=== PATIENT | male | born 1975 | race Caucasian/White ===

== ENCOUNTER 2016-06-07 10:35 | Emergency (ER) | payer OTHER ==
[2016-06-07 11:09] LABS: HEMOGLOBIN 14.3 gm/dl (14.0-17.5); RED BLOOD COUNT 4.26 M/UL (4.20-5.50); WHITE BLOOD COUNT 5.7 K/UL (4.5-11.0)
[2016-06-07 11:44] LABS: BUN/CREATININE RATIO 13 (0-10)
== END 2016-06-07 17:20 | disposition home or self-care (01) ==
LOC: ER1 10:35
PROVIDERS: Emergency Medicine
DX: R07.9 Chest pain, unspecified (principal)
CPT/HCPCS: 36600; 71020; 80053; 82550; 82553; 82803; 83690; 83874; 84484; 85025; 85379; 93005; 94640; 94664; 99285

== ENCOUNTER → 2016-06-08 | Outpatient (CLI) | payer OTHER | LOC: NM 09:39 | DX: R07.9 Chest pain, unspecified (principal) | CPT/HCPCS: 78452; 93017; A9502; J2785 ==